=== PATIENT | male | born 1980 | race Caucasian/White ===

== ENCOUNTER 2018-06-10 22:26 | Emergency (ER) | payer OTHER ==
--- NOTE | 2018-06-10 22:46 | ED ---
Chest Pain HPI - General Chief Complaint: Chest Pain Stated Complaint: arm numbness Time Seen by Provider: 06/10/18 22:40 Source: patient Mode of arrival: ambulatory Limitations: no limitations - History of Present Illness Initial Comments: Maninder is a 38-year-old male who presents the emergency department today for evaluation of left hand numbness as well as sharp chest pain. Patient reports that when he was getting into bed tonight he felt a sharp pain in his left chest radiating to his left shoulder. Patient reports he's experience pain similar to this multiple times in the past usually he just has to stretch, occasionally he is able to pop his sternum which results in improvement in his discomfort. Patient reports that today he stretch but he continued to have some discomfort in his left shoulder. Patient reports he also was experiencing some numbness in his left hand most prominent in his ring and pinky finger. Patient became concerned that he was having these symptoms at the same time, he does have family history of uncles who had cardiac disease in their 50s and he became worried so decided to the ER for further evaluation. 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 He does report intermittent numbness in his fingers which she has attributed to his guitar playing. - Related Data Home Medications Medication Instructions Recorded Confirmed No Known Home Medications 06/10/18 06/10/18 Allergies Allergy/AdvReac Type Severity Reaction Status Date / Time No Known Allergies Allergy Verified 06/10/18 22:35 Review of Systems ROS Statement: Those systems with pertinent positive or pertinent negative responses have been documented in the HPI. ROS Other: All systems not noted in ROS Statement are negative. EKG Findings - EKG Comments: EKG Findings:: EKG obtained at 10:40 PM, rate is 77, rhythm is sinus, there is normal axis, normal intervals, SD 154, QRS 108, QTC 425. There are no acute ST elevations or depressions no evidence of acute ischemia or infarction. Past Medical History Past Medical History: No Reported History History of Any Multi-Drug Resistant Organisms: None Reported Additional Past Surgical History / Comment(s): right shoulder Past Psychological History: No Psychological Hx Reported Smoking Status: Never smoker Past Alcohol Use History: Occasional Past Drug Use History: None Reported General Exam - General Exam Comments Initial Comments: Physical Exam GENERAL: Patient is well-developed and well-nourished. Patient is nontoxic and well- hydrated and is in no distress. Obese HENT: Normocephalic, Atraumatic. EYES: PERRL, EOMI PULMONARY: Unlabored respirations. No audible rales rhonchi or wheezing was noted. CARDIOVASCULAR: There is a regular rate and rhythm without any murmurs gallops or rubs. ABDOMEN: Soft and nontender with normal bowel sounds. SKIN: Skin is clear with no lesions or rashes and otherwise unremarkable. : Deferred NEUROLOGIC: Patient is alert and oriented x3. Moving all extremities spontaneously Decreased sensation to the left pinky and medial surface of the ring finger consistent with ulnar neuropathy MUSCULOSKELETAL: Normal extremities with adequate strength and full range of motion. No lower extremity swelling or edema. No calf tenderness. Full active and passive range of motion of upper extremity PSYCHIATRIC: Normal psychiatric evaluation. Limitations: no limitations Limitations: no limitations Course Vital Signs 06/10/18 06/10/18 06/11/18 22:28 23:32 01:32 Temperature 98.2 F 97.9 F Pulse Rate 75 74 Respiratory 18 18 19 Rate Blood Pressure 166/103 126/81 O2 Sat by Pulse 99 98 Oximetry Chest Pain MDM - MDM The patient was seen and evaluated history is obtained from patient and at bedside Patient with history of intermittent chest pain which appears to be's musculoskeletal in nature as it improves with stretching and patient reports occasionally hearing cracking around the sternum. Patient also experiencing some numbness in the fingers of his left hand again this is a problem that is been intermittent for him however expressing both problems same time made him concerned and prompted him to come to the ER for evaluation of sinusitis evaluation patient is mildly hypertensive no other abnormalities Physical exam is consistent with ulnar neuropathy of the left hand Cardiac workup was obtained, EKG was unremarkable, labs are unremarkable, chest x-ray with no acute findings patient's agreeable to plan for discharge home with outpatient follow-up. I advised the patient to follow up with his primary care physician for reevaluation of his blood pressure as well as possible rechecking of his cholesterol as his believes that it was elevated in the past with the patient cannot recall it is not currently on any medications. Patient's currently a nonsmoker. I did encourage him to exercise, maintain healthy diet loose some weight to decrease his cardiac risk factors. Patient's breast understanding of this all questions pertaining care were answered return parameters were discussed patient was discharged home in stable condition. Disposition Clinical Impression: Atypical chest pain, Ulnar neuropathy Disposition: HOME SELF-CARE Condition: Good Instructions: Chest Pain (ED), Cubital Tunnel Syndrome (ED) Is patient prescribed a controlled substance at d/c from ED?: No Referrals: Alicia Dee DO [Primary Care Provider] - 1-2 days Time of Disposition: 01:28
[2018-06-10 23:24] LABS: Basophils % (A) 1 %; Eosinophils # (A) 0.2 k/uL (0-0.7); Eosinophils % (A) 2 %; HCT 47.3 % (39.0-53.0); HGB 15.6 gm/dL (13.0-17.5); Lymphocytes # (A) 3.1 k/uL (1.0-4.8); Lymphocytes % (A) 39 %; MCH 29.7 pg (25.0-35.0); MCHC 32.9 g/dL (31.0-37.0); MCV 90.4 fL (80.0-100.0); Mean Platelet Volume 6.6; Monocytes # (A) 0.4 k/uL (0-1.0); Monocytes % (A) 5 %; Neutrophils % (A) 50 %; Platelet Count 354 k/uL (150-450); RBC 5.24 m/uL (4.30-5.90); RDW 12.6 % (11.5-15.5)
[2018-06-10 23:28] LABS: ALT 49 U/L (21-72); AST 33 U/L (17-59); Albumin 4.3 g/dL (3.5-5.0); Alkaline Phosphatase 77 U/L (38-126); Anion Gap 11 mmol/L; Blood Urea Nitrogen 15 mg/dL (9-20); Calcium 9.5 mg/dL (8.4-10.2); Carbon Dioxide 25 mmol/L (22-30); Chloride 106 mmol/L (98-107); Glucose 117 mg/dL (74-99); Magnesium 2.4 mg/dL (1.6-2.3); Partial Thromboplastin Time 23.7 sec (22.0-30.0); Potassium 3.8 mmol/L (3.5-5.1); Prothrombin Time 9.5 sec (9.0-12.0); Sodium 142 mmol/L (137-145); Total Bilirubin 0.5 mg/dL (0.2-1.3); Total Protein 7.7 g/dL (6.3-8.2)
[2018-06-10 23:42] LABS: Creatine Kinase 95 U/L (55-170)
--- NOTE | 2018-06-10 23:43 | XR ---
EXAMINATION TYPE: XR chest 2V DATE OF EXAM: 06/10/2018 COMPARISON: NONE HISTORY: Chest pain TECHNIQUE: Frontal and lateral views of the chest are obtained. FINDINGS: Heart and mediastinum are normal. Lungs are clear. Diaphragm is normal. Bony thorax is int act. There are chest leads. IMPRESSION: Normal chest.
[2018-06-10 23:54] LABS: Creatine Kinase MB 0.5 ng/mL (0.0-2.4); Troponin I <0.012 ng/mL (0.000-0.034)
[2018-06-11] MEDS ORDERED: KETOROLAC 30 MG/ML 1 ML VIAL IVP STA (00:32)
[2018-06-11 01:42] VITALS: BP 126/81; PULSE 74; RESP 19; TEMP 97.9
== END 2018-06-11 01:33 | disposition home or self-care (01) ==
LOC: EC 22:26
DX: R07.89 Other chest pain (principal); G56.22 Lesion of ulnar nerve, left upper limb
CPT/HCPCS: 36415; 93005; 80053; 82550; 82553; 83735; 84484; 85025; 85610; 85730; 71046; 99285; 96374; J1885

== ENCOUNTER → 2018-07-03 | Outpatient (CLI) | payer OTHER ==
--- NOTE | 2018-07-03 19:18 | P.STRESS ---
- Stress Test Note Stress Test Results/Findings: Exam Performed: stress test Exam Date: 07/03/18 Reason for Exam: CHEST PAIN Height: 6 ft Weight: 122.47 kg Protocol: ETT Stage: 2 Duration of Exercise: 6:32 Resting Heart Rate: 72 Resting Blood Pressure: 133/86 Maximum Achieved Heart Rate: 166 Maximum Achieved Blood Pressure: 185/77 85% PMHR: 154 100% PMHR: 181 METS: 7.9 Technologist Comment: Stress Test Results/Findings: This is a 38-year-old gentleman being evaluated for symptoms of chest pain. Patient has family history of ischemic heart disease and hypercholesteremia. Stress data Baseline EKG showed sinus rhythm with normal OK interval and QRS duration. Blood pressure at rest is 133/86 with pulse rate of 72. Patient walked on the Luis protocol for 6 and a minutes achieving a maximum heart rate of 166 with a blood pressure 185/77. EKGs taken during and after the exercise did not reveal any significant changes from the baseline. Patient did not experience any chest pain. Final impression : #1. Negative stress test #2 patient did not express any chest pain. #3. No arrhythmias were detected .
== END | disposition home or self-care (01) ==
LOC: RADNMMAIN 08:59
PROVIDERS: ATTEND Family Medicine
DX: R07.89 Other chest pain (principal)
CPT/HCPCS: 93017

== ENCOUNTER 2019-10-21 21:24 | Emergency (ER) | payer OTHER ==
[2019-10-21 21:32] VITALS: BP 146/90; PULSE 96; RESP 18; TEMP 98
[2019-10-21] MEDS ORDERED: LIDOCAINE 1% INJ 10MG/ML (20 ML MDV) SQ ONE (21:37)
--- NOTE | 2019-10-21 21:54 | ED ---
General Adult HPI - General Chief complaint: Wound/Laceration Stated complaint: L Hand Lac Time Seen by Provider: 10/21/19 21:33 Source: patient, RN notes reviewed Mode of arrival: ambulatory Limitations: no limitations - History of Present Illness Initial comments: 39-year-old female presents to the emergency department for a chief of laceration. Patient states that about 30 minutes prior to arrival he was using a tool on his guitar. States that it slipped and cut his left hand. Patient states he thinks it needs stitches. Patient denies any difficulty moving the thumb. He does complain of some tingling in the tip of his thumb. His tetanus is up-to-date as of 3 years ago.Patient has no other complaints at this time including shortness of breath, chest pain, abdominal pain, nausea or vomiting, headache, or visual changes. - Related Data Home Medications Medication Instructions Recorded Confirmed No Known Home Medications 06/10/18 06/10/18 Allergies Allergy/AdvReac Type Severity Reaction Status Date / Time No Known Allergies Allergy Verified 10/21/19 21:29 Review of Systems ROS Statement: Those systems with pertinent positive or pertinent negative responses have been documented in the HPI. ROS Other: All systems not noted in ROS Statement are negative. Past Medical History Past Medical History: No Reported History Additional Past Medical History / Comment(s): kidney stone, History of Any Multi-Drug Resistant Organisms: None Reported Additional Past Surgical History / Comment(s): right shoulder dislocation, Past Psychological History: No Psychological Hx Reported Smoking Status: Never smoker Past Alcohol Use History: Occasional Past Drug Use History: None Reported General Exam Limitations: no limitations General appearance: alert, in no apparent distress Head exam: Present: atraumatic, normocephalic, normal inspection Eye exam: Present: normal appearance, PERRL, EOMI. Absent: scleral icterus, conjunctival injection, periorbital swelling ENT exam: Present: normal exam, mucous membranes moist Neck exam: Present: normal inspection, full ROM. Absent: tenderness, meningismus, lymphadenopathy Respiratory exam: Present: normal lung sounds bilaterally. Absent: respiratory distress, wheezes, rales, rhonchi, stridor Cardiovascular Exam: Present: regular rate, normal rhythm, normal heart sounds. Absent: systolic murmur, diastolic murmur, rubs, gallop, clicks Extremities exam: Present: other (Patient has a 3 cm laceration involving the finger web of the left hand between the first and second digit. Capillary refill less than 2 seconds in the left thumb as well as the left hand. Radial pulses 2+. Sensation is intact in the left thumb. I do not see any obvious tendon injury or deep structure injury.) Course Vital Signs 10/21/19 21:26 Temperature 98.0 F Pulse Rate 96 Respiratory 18 Rate Blood Pressure 146/90 O2 Sat by Pulse 99 Oximetry Procedures - Laceration Laceration #1 Consent Obtained: verbal consent Indication: laceration Site: hand Size (cm): 3 Description: linear Depth: simple, single layer Anesthetic Used: lidocaine 1% Anesthesia Technique: local infiltration Amount (mls): 5 Pre-repair: wound explored, irrigated extensively Type of Sutures: other (Ethilon) Size of Sutures: 5-0 Number of Sutures: 5 Technique: simple, interrupted Patient Tolerated Procedure: well, no complications Medical Decision Making - Medical Decision Making Patient has a 3 cm laceration to the finger was of the left hand between the first and second digits. Full range of motion of the left thumb. Neurovascular status intact in the left upper extremity. Wound was irrigated thoroughly with saline pressure irrigation and explored without evidence of deep structure injury. 5 sutures were applied and wound was well approximated. Tetanus is up-to-date. Discussed signs of infection. Discussed going up with primary care. Discussed returning here in 7-10 days for suture removal. Disposition Clinical Impression: Laceration Disposition: HOME SELF-CARE Condition: Good Instructions (If sedation given, give patient instructions): Care For Your Stitches (ED), Laceration (ED) Additional Instructions: Please monitor for signs of infection such as spreading or streaking redness, drainage, or fever. Follow-up with primary care in 1-2 days for a recheck. Return to the emergency department for suture removal in 7-10 days or if you have any other palpitations prior to that time. Is patient prescribed a controlled substance at d/c from ED?: No Referrals: Gaye Love DO [Primary Care Provider] - 1-2 days Time of Disposition: 21:53
== END 2019-10-21 22:16 | disposition home or self-care (01) ==
LOC: EC 21:24
DX: S61.412A Laceration without foreign body of left hand, initial encounter (principal); W27.8XXA Contact with other nonpowered hand tool, initial encounter
CPT/HCPCS: 99282; 12002; J2001

== ENCOUNTER → 2021-10-17 | Outpatient (CLI) | payer BC ==
--- NOTE | 2021-10-17 12:05 | CT ---
EXAMINATION TYPE: CT abdomen pelvis wo con DATE OF EXAM: 10/17/2021 COMPARISON: None available HISTORY: Right flank pain, history of stones. CT DLP: 815.7 mGycm Automated exposure control for dose reduction was used. TECHNIQUE: Helical acquisition of images was performed from the lung bases through the pelvis. FINDINGS: LUNG BASES: No significant abnormality is appreciated. LIVER/GB: Suspected subcentimeter hepatic cyst at the anterior aspect of segment 4A, no other definit e hepatic focal lesion identified otherwise. Hyperdensity within the gallbladder which could represen t sludge. No evidence of acute cholecystitis. PANCREAS: No significant abnormality is seen. SPLEEN: No significant abnormality is seen. ADRENALS: No significant abnormality is seen. KIDNEYS: 10 mm elongated stone is seen impacted at the right pelviureteric junction causing mild righ t-sided hydronephrosis. 5 mm right lower pole tiny calculus versus calcification. 2 mm calculus of th e upper pole of the right kidney. 4 mm calculus is seen at the upper pole of the left kidney. Scatter ed tiny left mid and lower pole renal calculi measuring up to 2 mm. No definite ureteric or urinary b ladder calculi. No hydroureter bilaterally. No left-sided hydronephrosis. No definite renal lesion by this nonenhanced CT scan. The urinary bladder is not completely distended. Unremarkable prostate and seminal vesicles. FREE AIR: No free air is visualized RETROPERITONEAL ADENOPATHY: None visualized PELVIC ADENOPATHY: None visualized. OSSEOUS STRUCTURES: Bilateral L4 pars break with grade 1 anterolisthesis of L4 over L5. No aggressiv e bone lesion. BOWEL: No significant abnormality is seen. OTHER: No sizable ascites. Bilateral fat-containing inguinal hernias. IMPRESSION: 10 mm elongated obstructing stone at the right pelviureteric junction as described above, for urology consultation. Scattered bilateral nonobstructing renal calculi as described above. Recommend correla tion with urinalysis results. Other incidental findings as described above.
== END | disposition home or self-care (01) ==
LOC: RADCTMAIN 11:15
PROVIDERS: ATTEND Family Medicine
DX: N20.2 Calculus of kidney with calculus of ureter (principal)
CPT/HCPCS: 74176

== ENCOUNTER 2021-10-23 07:11 | Day surgery (SDC) | payer BC ==
[2021-10-19 15:55] VITALS: BMI 31.8
--- NOTE | 2021-10-19 16:47 | P.HPIHPCON ---
History of Present Illness H&P Date: 10/19/21 Chief Complaint: right ureteral stone 41 yo male with hx of 10 mm right UPJ stone, he is symptomatic from his stone. Option of ESWL vs Ureteroscopy with holmium laser lithotripsy. He agreed to proceed with ESWL. discussed risk of bleeding, infection and persistent stone. Discussed also risk from anesthesia. Discussed risk of needing additional procdures Consent for Procedure: I have explained the operation/procedure to the patient, including the risks, benefits, side effects, alternative therapies (including not receiving the proposed treatment or service), the likelihood of the patient achieving his/her goals, and potential recuperation problems for the procedure/sedation/analgesia, as well as any blood products, if indicated. I also explained to the patient the risks, benefits and side effects of the alternatives, as well as the risks related to not receiving the proposed procedure, care, treatment, or services. Past Medical History Past Medical History: Asthma Additional Past Medical History / Comment(s): kidney stones, hx migraines, childhood asthma, History of Any Multi-Drug Resistant Organisms: None Reported Past Surgical History: Orthopedic Surgery Additional Past Surgical History / Comment(s): right shoulder reconstructiove surgery and rotator cuff, rt thumb surgery, surgery rt upper leg for laceration, Past Anesthesia/Blood Transfusion Reactions: Previous Problems w/ Anesthesia Additional Past Anesthesia/Blood Transfusion Reaction / Comment(s): takes longer to come out of anesthesia Smoking Status: Never smoker - Past Family History Father Family Medical History: Cancer Medications and Allergies Home Medications Medication Instructions Recorded Confirmed Type Motrin(Dose Unknown) 1 tab PO DIRECTED PRN 10/19/21 10/19/21 History Multivitamins, Thera [Multivitamin 1 tab PO DAILY 10/19/21 10/19/21 History (formulary)] traMADol HCL [Ultram] 50 mg PO Q6HR PRN 10/19/21 10/19/21 History Allergies Allergy/AdvReac Type Severity Reaction Status Date / Time No Known Allergies Allergy Verified 10/19/21 15:47 Assessment and Plan Assessment: -OR for right ESWL
[2021-10-23 07:31] VITALS: RESP 16; TEMP 96.8
[2021-10-23] MEDS ORDERED: LACTATED RINGERS 1,000 ML IV ONE (07:40)
[2021-10-23] MEDS ORDERED: ONDANSETRON 4 MG/2 ML VIAL ONE (07:47)
[2021-10-23] MEDS ORDERED: ONDANSETRON 4 MG/2 ML VIAL IVP ONE (07:48)
[2021-10-23] MEDS ORDERED: DEXAMETHASONE SOD PHOSPHATE 4 MG/ML 1 ML VIAL IVP ONE (07:49)
[2021-10-23] MEDS ORDERED: PROPOFOL 10 MG/ML 20 ML VIAL IV ONE (08:16)
[2021-10-23] MEDS ORDERED: fentaNYL (PF) 50 MCG/ML 2 ML AMP ONE (08:16)
[2021-10-23] MEDS ORDERED: MIDAZOLAM 2 MG/2 ML VIAL ONE (08:16)
--- NOTE | 2021-10-23 08:19 | XR ---
EXAMINATION TYPE: XR KUB DATE OF EXAM: 10/23/2021 COMPARISON: CT dated 10/17/2021 INDICATION: Preoperative for right-sided lithotripsy TECHNIQUE: 2 supine views of the abdomen and pelvis FINDINGS: Stable 10 mm stone seen at the right pelviureteric junction as well as the 3 mm calculus at the lower pole of right kidney and the 3 mm calculus at the upper pole of the left kidney. Fecal loading of th e right hemicolon. Degenerative changes of the lower lumbar spine. IMPRESSION: Stable urinary calculi as described above.
[2021-10-23] MEDS ORDERED: SODIUM CHLORIDE 0.9% 500 ML 500 ML IV ONE (08:46)
--- NOTE | 2021-10-23 08:55 | P.OP ---
Date of Procedure: 10/23/21 Preoperative Diagnosis: Right UPJ stone, 10 mm Postoperative Diagnosis: Same Procedure(s) Performed: Extracorporeal shockwave lithotripsy, 2500 shocks, energy level IV Anesthesia: MAC Surgeon: Phil Cervantes Pathology: none sent Condition: stable Disposition: PACU Indications for Procedure: Patient is 41. A 10 mm right UPJ stone. He come for right shockwave lithotripsy Description of Procedure: Patient is brought to the operating suite. He was placed on the lithotripsy table. The stone was seen in 2 views of fluoroscopy. A total of 2500 shocks at energy level IV administered by the compact delta lithotriptor. Stone appears to fracture nicely. The patient's awakened at the end of the procedure we discharged home upon recovery and followed office 1 week.
[2021-10-23 09:26] VITALS: BP 144/83; PULSE 78
== END 2021-10-23 10:00 | disposition home or self-care (01) ==
LOC: ORWHC2ENDO 07:11
PROVIDERS: ATTEND Urology
DX: N20.1 Calculus of ureter (principal); J45.909 Unspecified asthma, uncomplicated; G43.909 Migraine, unspecified, not intractable, without status migrainosus; Z79.899 Other long term (current) drug therapy
CPT/HCPCS: 50590; 74018; J2250; J1100; J2405; J3010; J2704

== ENCOUNTER → 2021-11-08 | Outpatient (CLI) | payer BC ==
--- NOTE | 2021-11-08 09:06 | XR ---
EXAMINATION TYPE: XR KUB DATE OF EXAM: 11/08/2021 HISTORY: 10/23/2021 Comparison: None.Single KUB is submitted for interpretation. Findings: Right renal calculi: Previously noted calculus at the right UPJ is not clearly visualized on today's study. Scattered 2 and 3 mm calculi right kidney are stable. Right ureteral calculi: None Visualized. Left renal calculi: 3 mm calculus upper pole left kidney. Left ureteral calculi: None Visualized. Pelvic calcifications: None Visualized. Bowel gas pattern is unremarkable. No free air. No mass effects. IMPRESSION: 1. Previously noted calculus at the right UPJ is not clearly visualized on today's study. Scattered 2 and 3 mm calculi right kidney are stable.
== END | disposition home or self-care (01) ==
LOC: RADXRMAIN 08:27
PROVIDERS: ATTEND Urology
DX: N20.0 Calculus of kidney (principal)
CPT/HCPCS: 74018

== ENCOUNTER → 2023-11-27 | Outpatient (CLI) | payer BC ==
--- NOTE | 2023-11-28 08:44 | XR ---
EXAMINATION TYPE: XR KUB DATE OF EXAM: 11/27/2023 5:35 PM CLINICAL INDICATION:Male, 43 years old with history of N20.0 CALCULUS OF KIDNEY; COMPARISON: None. TECHNIQUE: One radiographic view of the abdomen was obtained. FINDINGS: The bowel gas pattern is nonspecific without dilated loops of small or large bowel. There i s no evidence for organomegaly or pneumoperitoneum. The osseous structures are intact. No abnormal calcifications are present. Fecal material and gas are demonstrated throughout the colon and rectum. IMPRESSION: Nonspecific bowel gas pattern without radiographic evidence for acute process.
== END | disposition home or self-care (01) ==
LOC: RADXRMAIN 17:15
PROVIDERS: ATTEND Family Medicine
DX: N20.0 Calculus of kidney (principal)
CPT/HCPCS: 74018

== ENCOUNTER → 2023-12-10 | Outpatient (CLI) | payer BC ==
--- NOTE | 2023-12-10 19:38 | CT ---
EXAMINATION TYPE: CT abdomen pelvis wo con DATE OF EXAM: 12/10/2023 COMPARISON: 10/17/2021 HISTORY: 43-year-old male N20.0, HEMATURIA/LEFT FLANK PAIN CT DLP: 1222 mGycm. Automated exposure control for dose reduction was used. TECHNIQUE: Contiguous axial scanning of the abdomen and pelvis without IV contrast. Coronal and sagit naomi reconstructions performed. FINDINGS: Heart normal size without pericardial effusion. Some focal infiltration anterior right hemidiaphragm. Lung bases are clear without pleural effusion. Tiny 8 mm cyst mid liver. Otherwise, noncontrast appearance of the liver, gallbladder, adrenal glands , spleen, and pancreas show no gross abnormality. There is some focal perinephric fat stranding measuring 1.9 cm posterior mid right kidney, possibly r elating to post procedural change or the development of a cortical lesion such as AML. A few punctate 2 mm left lower pole renal calculi are present. While there is no hydronephrosis, ther e are 2 adjacent 5 mm and 4 mm calcifications at the left ureteral orifice. No dilated bowel, free fluid, or free air. No mesenteric or retroperitoneal lymphadenopathy. Normal appendix. Mild stool burden. No pericolonic inflammatory change. Bladder partially distended. Prostate gland measures 4.7 cm wide. Patulous left inguinal canal. No ab normal fluid collection in the pelvis or pelvic lymphadenopathy. Bones: Bilateral L4 pars defects with grade 2 anterolisthesis L4-L5. Severe degenerative disc disease at both L4-L5 and L5-S1. IMPRESSION: 1. Two stones at the left ureteral orifice measuring 4 mm and 5 mm which may have just passed into t he bladder as there is no significant hydronephrosis seen. 2. A few additional punctate 2 mm nonobstructive left renal stones. 3. Interval development of a 1.9 cm focal area perinephric stranding posterior mid right kidney. Que ry possibility of postprocedural change or the development of a cortical lesion such as an AML. Consi salvador follow-up CT in 6-12 months to reassess. 4. Similar bilateral L4 pars defects with nearly grade 2 anterolisthesis at L4-L5. Severe degenerati ve disc disease lower lumbar spine.
== END | disposition home or self-care (01) ==
LOC: RADCTMAIN 17:40
PROVIDERS: ATTEND Urology
DX: N20.0 Calculus of kidney (principal); M43.16 Spondylolisthesis, lumbar region; M51.36 Other intervertebral disc degeneration, lumbar region
CPT/HCPCS: 74176

== ENCOUNTER → 2023-12-24 | Outpatient (CLI) | payer BC, OTHER ==
--- NOTE | 2023-12-25 11:15 | CA ---
Transthoracic Echo Report Name: Maninder Acevedo Age: 43 Gender: M : 1980 Exam Date: 12/24/2023 15:43 Exam Location: [place] [facility] Ht (in): 72 Wt (lb): 250 Ordering Physician: Gaye Love DO Attending/Referring Phys: Faye Winslow PAC Nicu Rn Radha Scruggs RDCS Procedure CPT: Indications: R55 SYNCOPE AND COLLAPSE Cardiac Hx: Technical Quality: Fair Contrast 1: Total Dose (mL): Contrast 2: Total Dose (mL): MEASUREMENTS (Male / Female) Normal Values 2D ECHO LV Diastolic Diameter PLAX 4.5 cm 4.2 - 5.9 / 3.9 - 5.3 cm LV Systolic Diameter PLAX 2.6 cm IVS Diastolic Thickness 1.2 cm 0.6 - 1.0 / 0.6 - 0.9 cm LVPW Diastolic Thickness 1.3 cm 0.6 - 1.0 / 0.6 - 0.9 cm LV Relative Wall Thickness 0.6 LVOT Diameter 2.0 cm LA Volume 93.7 cm??? 18 - 58 / 22 - 52 cm??? LA Volume Index 38.5 cm???/m??? 16 - 28 cm???/m??? M-MODE Aortic Root Diameter MM 3.0 cm LA Systolic Diameter MM 5.0 cm LA Ao Ratio MM 1.7 AV Cusp Separation MM 2.2 cm DOPPLER AV Peak Velocity 148.4 cm/s AV Peak Gradient 8.8 mmHg AV Mean Velocity 101.3 cm/s AV Mean Gradient 4.7 mmHg AV Velocity Time Integral 28.5 cm LVOT Peak Velocity 104.6 cm/s LVOT Peak Gradient 4.4 mmHg LVOT Velocity Time Integral 21.1 cm LVOT Stroke Volume 66.6 cm??? LVOT Stroke Volume Index 28.4 ml/m??? LVOT Cardiac Index 1667.9 cm???/min???m??? AV Area Cont Eq vti 2.3 cm??? AV Area Cont Eq pk 2.2 cm??? MV Area PHT 3.5 cm??? Mitral E Point Velocity 86.3 cm/s Mitral A Point Velocity 49.4 cm/s Mitral E to A Ratio 1.7 MV Deceleration Time 216.2 ms MV E' Velocity 6.0 cm/s Mitral E to MV E' Ratio 14.4 TR Peak Velocity 242.1 cm/s TR Peak Gradient 23.4 mmHg Right Ventricular Systolic Press 26.9 mmHg FINDINGS Left Ventricle Mildly increased left ventricular wall thickness. Left ventricular cavity size normal. Normal left ventricular systolic function with no obvious regional wall motion abnormalities. Left ventricular ejection fraction is estimated at 55-60 %. Grade 1 diastolic dysfunction. Right Ventricle Normal right ventricular size and function. Right ventricular systolic pressure within normal limits. Right Atrium Normal right atrial size. Left Atrium Moderately increased left atrial volume. Mildly increased left atrial area. Interatrial septal aneurysm. Mitral Valve Structurally normal mitral valve. Mitral annular calcification. Mild mitral regurgitation. Aortic Valve Trileaflet aortic valve. No aortic valve stenosis or regurgitation. Tricuspid Valve Structurally normal tricuspid valve. Mild tricuspid regurgitation. Pulmonic Valve Structurally normal pulmonic valve. Mild pulmonic regurgitation. Pericardium No pericardial effusion. Aorta Normal size aortic root and proximal ascending aorta. CONCLUSIONS Normal LV systolic function No significant valvular abnormalities noted Previewed by: Dr. Anthony Mullins MD (Electronically Signed) Final Date: 25 December 2023 11:14
== END | disposition home or self-care (01) ==
LOC: RADECHMAIN 15:38
PROVIDERS: ATTEND Family Medicine
DX: R55 Syncope and collapse (principal)
CPT/HCPCS: 93306

== ENCOUNTER 2024-01-10 20:38 | Emergency (ER) | payer BC, OTHER ==
[2024-01-10 20:49] VITALS: TEMP 98
--- NOTE | 2024-01-10 21:17 | ED ---
General Adult HPI - General Chief complaint: Chest Pain Stated complaint: Chest pain,Sob,L Arm numbness Time Seen by Provider: 01/10/24 20:52 Source: patient, RN notes reviewed, old records reviewed Limitations: no limitations - History of Present Illness Initial comments: 43-year-old male presenting for evaluation of chest pain. Patient developed a substernal and left-sided chest pain which began approximately 3 hours prior to arrival. Pain began at rest. This was associated with diaphoresis and symptoms into the left arm. Patient states that 1 week ago he had a unexplained syncopal episode. He received a monitor by his primary care provider and was told this was abnormal but does not know the specific details. He was instructed to follow-up with cardiology. He has no prior history of CAD. He denies abdominal pain nausea or vomiting. He has a family history of premature coronary artery disease. - Related Data Home Medications Medication Instructions Recorded Confirmed Motrin(Dose Unknown) 1 tab PO DIRECTED PRN 10/19/21 10/23/21 Multivitamins, Thera [Multivitamin 1 tab PO DAILY 10/19/21 10/23/21 (formulary)] traMADol HCL [Ultram] 50 mg PO Q6HR PRN 10/19/21 10/23/21 Tamsulosin HCl [Flomax] 0.4 mg PO DAILY 10/23/21 10/23/21 Previous Rx's Medication Instructions Recorded traMADol HCL 50 mg PO Q6HR PRN #14 tablet 10/23/21 Allergies Allergy/AdvReac Type Severity Reaction Status Date / Time No Known Allergies Allergy Verified 01/10/24 20:43 Review of Systems ROS Statement: Those systems with pertinent positive or pertinent negative responses have been documented in the HPI. ROS Other: All systems not noted in ROS Statement are negative. Past Medical History Past Medical History: Asthma Additional Past Medical History / Comment(s): kidney stones, hx migraines, childhood asthma, History of Any Multi-Drug Resistant Organisms: None Reported Past Surgical History: Orthopedic Surgery Additional Past Surgical History / Comment(s): right shoulder reconstructiove surgery and rotator cuff, rt thumb surgery, surgery rt upper leg for laceration, right wrist metacarpal surgical procedure. Past Anesthesia/Blood Transfusion Reactions: Previous Problems w/ Anesthesia Additional Past Anesthesia/Blood Transfusion Reaction / Comment(s): takes longer to come out of anesthesia Past Psychological History: No Psychological Hx Reported Smoking Status: Never smoker - Past Family History Father Family Medical History: Cancer General Exam Limitations: no limitations General appearance: alert, in no apparent distress Head exam: Present: atraumatic, normocephalic Eye exam: Present: normal appearance, PERRL ENT exam: Present: normal exam Neck exam: Present: normal inspection. Absent: tenderness, meningismus Respiratory exam: Present: normal lung sounds bilaterally. Absent: respiratory distress, wheezes Cardiovascular Exam: Present: regular rate, normal rhythm GI/Abdominal exam: Present: soft. Absent: distended, tenderness, guarding Extremities exam: Present: normal inspection, normal capillary refill. Absent: pedal edema, calf tenderness Neurological exam: Present: alert, oriented X3, CN II-XII intact. Absent: motor sensory deficit Psychiatric exam: Present: normal affect, normal mood Skin exam: Present: warm, dry, intact Course Vital Signs 01/10/24 01/10/24 01/10/24 20:43 21:04 21:08 Temperature 98.0 F Pulse Rate 70 75 Pulse Rate [ 74 Right Sitting Radial] Respiratory 20 18 Rate Blood Pressure 148/93 146/92 O2 Sat by Pulse 97 97 Oximetry Medical Decision Making - Medical Decision Making Was pt. sent in by a medical professional or institution (, PA, TRAFFIC OR SYSTEM DISPATCHER, urgent ca re, hospital, or prison...) When possible be specific @ -No Did you speak to anyone other than the patient for history (EMS, parent, family, police, friend...)? What history was obtained from this source @ -No Did you review nursing and triage notes (agree or disagree)? Why? @ -I reviewed and agree with nursing and triage notes Were old charts reviewed (outside hosp., previous admission, EMS record, old EKG, old radiological studies, urgent care reports/EKG's, prison records)? Report findings @ -No old charts were reviewed Differential Chest Pain: Stable Angina, Unstable Angina, STEMI, NSTEMI Aortic Dissection, Pneumothorax, Musculoskeletal, Esophageal Spasm GERD, Cholecystitis, Pancreatitis, Zoster, this is not meant to be an all-inclusive list. EKG interpreted by me (3pts min.). @ -Sinus rhythm rate of 74, TN interval 161, QRS duration 110, QTc [address] segment elevation. X-rays interpreted by me (1pt min.). @ -[Chest x-ray clear, no acute cardiopulmonary findings CT interpreted by me (1pt min.). @ -None done U/S interpreted by me (1pt. min.). @ -None done What testing was considered but not performed or refused? (CT, X-rays, U/S, labs)? Why? @ -None What meds were considered but not given or refused? Why? @ -None Did you discuss the management of the patient with other professionals (professionals i.e. , PA, TRAFFIC OR SYSTEM DISPATCHER, lab, RT, psych nurse, social worker aide, wire coiner, teacher, second officer, case sealer)? Give summary @ -No Was smoking cessation discussed for >3mins.? @ -No Was critical care preformed (if so, how long)? @ -No Were there social determinants of health that impacted care today? How? (Homelessness, low income, unemployed, alcoholism, drug addiction, transportation, low edu. Level, literacy, decrease access to med. care, retirement, rehab)? @ -No Was there de-escalation of care discussed even if they declined (Discuss DNR or withdrawal of care, Hospice)? DNR status @ -No What co-morbidities impacted this encounter? (DM, HTN, Smoking, COPD, CAD, Cancer, CVA, ARF, Chemo, Hep., AIDS, mental health diagnosis, sleep apnea, morbid obesity)? @ -None Was patient admitted / discharged? Hospital course, mention meds given and route, prescriptions, significant lab abnormalities, going to OR and other pertinent info. @43-year-old male presenting for evaluation of chest discomfort. Patient's pain began approximately 3 hours prior to arrival. He did have typical features. EKG is sinus without ST segment elevation. Chest x-ray is clear no acute cardiopulmonary findings. Patient has normal CBC, normal CMP, negative initial troponin. We did discuss the possibility of admission for serial cardiac enzymes, telemetry, cardiology consultation, patient declines, prefers 3-hour troponin in the emergency department. This is obtained and is again negative. Patient is given strict return parameters and will follow closely with his primary care provider. Additionally he has a scheduled appointment for outpatient cardiology consultation. Undiagnosed new problem with uncertain prognosis? @ -No Drug Therapy requiring intensive monitoring for toxicity (Heparin, Nitro, Insulin, Cardizem)? @ -No Were any procedures done? @ -No Diagnosis/symptom? @ -Chest pain Acute, or Chronic, or Acute on Chronic? @ -Acute Uncomplicated (without systemic symptoms) or Complicated (systemic symptoms)? @ -Default Side effects of treatment? @ -No Exacerbation, Progression, or Severe Exacerbation? @ -No Poses a threat to life or bodily function? How? (Chest pain, [place], [place], pneumonia, PE, COPD, DKA, ARF, appy, cholecystitis, CVA, Diverticulitis, Homicidal, Suicidal, threat to staff... and all critical care pts) @ -Low risk at this time - Lab Data Result diagrams: 01/10/24 21:20 01/10/24 21:20 Lab Results 01/10/24 01/10/24 01/10/24 Range/Units 21:20 21:20 21:20 WBC 6.6 (3.8-10.6) k/uL RBC 5.12 (4.30-5.90) m/uL Hgb 15.3 (13.0-17.5) gm/dL Hct 46.2 (39.0-53.0) % MCV 90.3 (80.0-100.0) fL MCH 29.9 (25.0-35.0) pg MCHC 33.2 (31.0-37.0) g/dL RDW 12.3 (11.5-15.5) % Plt Count 308 (150-450) k/uL MPV 7.4 Neutrophils % 58 % Lymphocytes % 30 % Monocytes % 7 % Eosinophils % 2 % Basophils % 1 % Neutrophils # 3.8 (1.3-7.7) k/uL Lymphocytes # 2.0 (1.0-4.8) k/uL Monocytes # 0.4 (0-1.0) k/uL Eosinophils # 0.1 (0-0.7) k/uL Basophils # 0.1 (0-0.2) k/uL PT 10.0 (10.0-12.5) sec INR 0.9 (<1.2) APTT 24.7 (22.0-30.0) sec Sodium 140 (137-145) mmol/L Potassium 3.8 (3.5-5.1) mmol/L Chloride 108 H (98-107) mmol/L Carbon Dioxide 25 (22-30) mmol/L Anion Gap 7 mmol/L BUN 14 (9-20) mg/dL Creatinine 0.81 (0.66-1.25) mg/dL Est GFR (CKD-EPI)AfAm >90 (>60 ml/min/1.73 sqM) Est GFR (CKD-EPI)NonAf >90 (>60 ml/min/1.73 sqM) Glucose 105 H (74-99) mg/dL Calcium 9.4 (8.4-10.2) mg/dL Magnesium 2.1 (1.6-2.3) mg/dL Total Bilirubin 0.5 (0.2-1.3) mg/dL AST 26 (17-59) U/L ALT 19 (4-49) U/L Alkaline Phosphatase 77 (38-126) U/L Troponin I (0.000-0.034) ng/mL Total Protein 7.1 (6.3-8.2) g/dL Albumin 4.3 (3.5-5.0) g/dL 01/10/24 Range/Units 21:20 WBC (3.8-10.6) k/uL RBC (4.30-5.90) m/uL Hgb (13.0-17.5) gm/dL Hct (39.0-53.0) % MCV (80.0-100.0) fL MCH (25.0-35.0) pg MCHC (31.0-37.0) g/dL RDW (11.5-15.5) % Plt Count (150-450) k/uL MPV Neutrophils % % Lymphocytes % % Monocytes % % Eosinophils % % Basophils % % Neutrophils # (1.3-7.7) k/uL Lymphocytes # (1.0-4.8) k/uL Monocytes # (0-1.0) k/uL Eosinophils # (0-0.7) k/uL Basophils # (0-0.2) k/uL PT (10.0-12.5) sec INR (<1.2) APTT (22.0-30.0) sec Sodium (137-145) mmol/L Potassium (3.5-5.1) mmol/L Chloride (98-107) mmol/L Carbon Dioxide (22-30) mmol/L Anion Gap mmol/L BUN (9-20) mg/dL Creatinine (0.66-1.25) mg/dL Est GFR (CKD-EPI)AfAm (>60 ml/min/1.73 sqM) Est GFR (CKD-EPI)NonAf (>60 ml/min/1.73 sqM) Glucose (74-99) mg/dL Calcium (8.4-10.2) mg/dL Magnesium (1.6-2.3) mg/dL Total Bilirubin (0.2-1.3) mg/dL AST (17-59) U/L ALT (4-49) U/L Alkaline Phosphatase (38-126) U/L Troponin I <0.012 (0.000-0.034) ng/mL Total Protein (6.3-8.2) g/dL Albumin (3.5-5.0) g/dL Disposition Clinical Impression: Chest pain Disposition: HOME SELF-CARE Condition: Fair Instructions (If sedation given, give patient instructions): Chest Pain (ED) Is patient prescribed a controlled substance at d/c from ED?: No Referrals: Gaye Love DO [Primary Care Provider] - 1-2 days Time of Disposition: 00:30
[2024-01-10 21:21] VITALS: RESP 18
[2024-01-10 21:51] LABS: Basophils # (A) 0.1 k/uL (0-0.2); Basophils % (A) 1 %; Eosinophils # (A) 0.1 k/uL (0-0.7); Eosinophils % (A) 2 %; HCT 46.2 % (39.0-53.0); HGB 15.3 gm/dL (13.0-17.5); Lymphocytes % (A) 30 %; MCH 29.9 pg (25.0-35.0); MCHC 33.2 g/dL (31.0-37.0); MCV 90.3 fL (80.0-100.0); Mean Platelet Volume 7.4; Monocytes # (A) 0.4 k/uL (0-1.0); Monocytes % (A) 7 %; Neutrophils # (A) 3.8 k/uL (1.3-7.7); Neutrophils % (A) 58 %; Platelet Count 308 k/uL (150-450); RBC 5.12 m/uL (4.30-5.90); RDW 12.3 % (11.5-15.5); WBC 6.6 k/uL (3.8-10.6)
[2024-01-10 22:01] LABS: INR 0.9 (<1.2); Partial Thromboplastin Time 24.7 sec (22.0-30.0)
--- NOTE | 2024-01-10 22:03 | XR ---
EXAMINATION TYPE: XR chest 2V DATE OF EXAM: 01/10/2024 9:52 PM CLINICAL INDICATION:Male, 43 years old with history of Chest Pain; [facility] COMPARISON: Chest radiographs from 06/10/2018 TECHNIQUE: XR chest 2V Frontal view of the chest. FINDINGS: Lungs/Pleura: There is no evidence of pleural effusion, focal consolidation, or pneumothorax. Pulmonary vascularity: Unremarkable. Heart/mediastinum: Cardiomediastinal silhouette is unremarkable. Musculoskeletal: No acute osseous pathology. IMPRESSION: No acute cardiopulmonary disease/process.
[2024-01-10 22:06] LABS: ALT 19 U/L (4-49); AST 26 U/L (17-59); African American GFR (CKD) >90 (>60 ml/min/1.73 sqM); Albumin 4.3 g/dL (3.5-5.0); Alkaline Phosphatase 77 U/L (38-126); Anion Gap 7 mmol/L; Blood Urea Nitrogen 14 mg/dL (9-20); Calcium 9.4 mg/dL (8.4-10.2); Carbon Dioxide 25 mmol/L (22-30); Chloride 108 mmol/L (98-107); Glucose 105 mg/dL (74-99); Magnesium 2.1 mg/dL (1.6-2.3); Non-African American GFR(CKD) >90 (>60 ml/min/1.73 sqM); Potassium 3.8 mmol/L (3.5-5.1); Sodium 140 mmol/L (137-145); Total Bilirubin 0.5 mg/dL (0.2-1.3); Total Protein 7.1 g/dL (6.3-8.2)
[2024-01-11] MEDS: ASPIRIN 325 MG TAB PO STA (00:37)
[2024-01-11 00:39] VITALS: BP 125/81; PULSE 63
== END 2024-01-11 01:09 | disposition home or self-care (01) ==
LOC: EC 20:38
DX: R07.89 Other chest pain (principal)
CPT/HCPCS: 36415; 71046; 80053; 83735; 84484; 85025; 85610; 85730; 93005; 99285

== ENCOUNTER → 2024-03-18 | Outpatient (CLI) | payer BC ==
[2024-03-18 14:32] VITALS: BP 132/85; PULSE 62; RESP 16; TEMP 98.3
--- NOTE | 2024-03-18 15:29 | P.SLEEP ---
History of Present Illness DATE: 03/18/2024 CONSULTATION/NEW PATIENT EVALUATION HISTORY OF PRESENT ILLNESS/SLEEP-WAKE EVALUATION: 43-year-old gentleman had b een evaluated in the sleep center for possible obstructive sleep apnea hypopnea syndrome. SLEEP SCHEDULE: Usually sleep schedule from 910 PM to 5:30 AM on weekdays and from 1011 PM to 78 AM on weekend. FALLING ASLEEP: Usually no problems with falling asleep. DURING SLEEP: Patient snores and wakes up from sleep up to 3 times. Patient prefers to sleep on the stomach position or on the chair. Usually cannot sleep on the back position. Cardiac monitoring during sleep showed episodes of changing of heart rate. No history of hypnogogical hallucinations, sleep paralysis, or cataplexy. DURING THE DAY/WAKE STATE: In the morning patient wake up tired, has episodes of irritability.. [place] sleepiness scale is 4. Usually patient does not take naps. PAST MEDICAL HISTORY: Kidney stones, syncopal episode, acid reflux. PAST SURGICAL HISTORY: Lithotripsy, right shoulder surgery, right wrist surgery. MEDICATIONS: Please see below. SOCIAL HISTORY: Please see below. FAMILY HISTORY: Hypertension, heart problems, cancer, acid reflux, diabetes. REVIEW OF SYSTEMS: Snoring, multiple awakenings from sleep. No fevers. No double vision. No recent chest pain. No shortness of breath. No abdominal pain. No bleeding episodes. No blood in urine. No seizure episodes. PHYSICAL EXAMINATION: GENERAL: A pleasant patient without any distress. VITAL SIGNS: Please see below, weight 250 pounds, BMI 35.3. HEENT: PERRLA, EOMI. Evaluation of oropharynx showed tongue protrudes midline, low position of soft palate Mallampati 23, some hypertrophy of tonsils. NECK: Supple. No JVD. Thyroid is not palpable. 15.5 inches in circumference. LUNGS: Clear to percussion and to auscultation. Good air exchange. No wheezing or rhonchi. HEART: S1, S2 regular. No murmurs, gallops or rubs. ABDOMEN: Soft and nontender. Bowel sounds are present. No organomegaly appreciated. EXTREMITIES: No clubbing or cyanosis. ARCHIVES DIRECTOR: Awake, alert, and oriented x3. Cranial nerves 2 to 7 intact. There is no fasciculation or atrophy noted. No focal deficits observed. ASSESSMENT: 1. Snoring, awakenings from sleep, small oropharyngeal airspace, documented by cardiac monitoring changing of heart rate during sleep. Obstructive sleep apnea hypopnea syndrome. 2. Obesity BMI 35.3. 3. History of kidney stones, status post lithotripsy 3 years ago. 4. Syncopal episode at the day when patient passed stone and used tamsulosin. 5 status post right wrist surgery. 6 . Status post right shoulder surgery. PLAN: 1. Home sleep apnea test for evaluation of patient's breathing during sleep. 2. Following plan after reading sleep study. 3. Preferable position during sleep on the side. 4. No driving if patient feels any sleepiness. Patient is aware of civil and criminal liability for unsafe driving. 5. Sleep hygiene with regular sleep time for at least 7.5-8 hours. 6. Watching and losing weight. Thank you very much for referring this patient for consultation. Sincerely, Maico Burciaga MD, PhD, FAASM. Diplomat of [place] [employer], Sleep Medicine Board by [place] [employer] [place] [employer] Senior Compliance Officer of [facility] [place] cc: Goldy Mckinney PA-C Past Medical History Past Medical History: Asthma Additional Past Medical History / Comment(s): kidney stones, hx migraines, childhood asthma, History of Any Multi-Drug Resistant Organisms: None Reported Past Surgical History: Orthopedic Surgery Additional Past Surgical History / Comment(s): right shoulder reconstructiove surgery and rotator cuff, rt thumb surgery, surgery rt upper leg for laceration, right wrist metacarpal surgical procedure. lithotripsy Past Anesthesia/Blood Transfusion Reactions: Previous Problems w/ Anesthesia Additional Past Anesthesia/Blood Transfusion Reaction / Comment(s): takes longer to come out of anesthesia Past Psychological History: No Psychological Hx Reported Smoking Status: Never smoker Past Alcohol Use History: Occasional Past Drug Use History: None Reported - Past Family History Father Family Medical History: Cancer, GERD/Reflux Mother Family Medical History: Coronary Artery Disease (CAD), Diabetes Mellitus, Hypertension Medications and Allergies Home Medications Medication Instructions Recorded Confirmed Type Motrin(Dose Unknown) 1 tab PO DIRECTED PRN 10/19/21 10/23/21 History Multivitamins, Thera [Multivitamin 1 tab PO DAILY 10/19/21 10/23/21 History (formulary)] traMADol HCL [Ultram] 50 mg PO Q6HR PRN 10/19/21 10/23/21 History Tamsulosin HCl [Flomax] 0.4 mg PO DAILY 10/23/21 10/23/21 History traMADol HCL 50 mg PO Q6HR PRN #14 tablet 10/23/21 Rx Aspirin EC [Ecotrin Low Dose] 81 mg PO DAILY 03/18/24 03/18/24 History Allergies Allergy/AdvReac Type Severity Reaction Status Date / Time No Known Allergies Allergy Verified 01/10/24 20:43 Physical Exam Vitals: Vital Signs Temp Pulse Resp BP Pulse Ox 03/18/24 14:29 98.3 F 62 16 132/85 99 Intake and Output 03/18/24 03/18/24 03/18/24 06:59 14:59 22:59 Other: Weight 113.398 kg Sleep Note - Sleep Data ESS Total: 4 - Sleep Note Sleep Note: Temperature: 98.3 F Pulse Rate: 62 Respiratory Rate: 16 Blood Pressure: 132/85 SpO2: 99 Height: 5 ft 10.5 in Weight: 113.398 kg BMI: Neck Circumference: 15.5
== END ==
LOC: 3 N SLEEP 13:57
PROVIDERS: ATTEND Internal Medicine
CPT/HCPCS: 99211